=== PATIENT | female | born 1945 | race African-American/Black ===

== ENCOUNTER 2020-01-13 14:05 | Emergency (ER) | payer MEDICARE ==
[~2020-01-13] VITALS: Ht 162.6 cm; Wt 54.4 kg
[~2020-01-13 14:05] MED LIST: ATENOLOL 50 MG50 M1 PO; BENAZEPRIL HCL40 MG PO; HYDROCHLOROTHIA25 M1 PO; NORVASC5 MG PO; NYSTATIN 1100000 U/M SW&SWALLOW; PREVACID30 M1 PO
[2020-01-13 14:13] VITALS: BP 144/87
[2020-01-13] MEDS ORDERED: TRIAMCINOLONE A80 G2 TOP (14:37)
[2020-01-13] MEDS ORDERED: KEFLEX500 M1 PO (14:37)
== END 2020-01-13 14:52 | disposition home or self-care (01) ==
LOC: ER 14:05
DX: S90.522A Blister (nonthermal), left ankle, initial encounter (principal); I10 Essential (primary) hypertension; F17.210 Nicotine dependence, cigarettes, uncomplicated; Z79.899 Other long term (current) drug therapy; X58.XXXA Exposure to other specified factors, initial encounter; Y93.89 Activity, other specified; Y92.89 Other specified places as the place of occurrence of the external cause; Y99.8 Other external cause status

== ENCOUNTER 2020-01-16 20:57 | Emergency (ER) | payer MEDICARE ==
[~2020-01-16] VITALS: Ht 162.6 cm; Wt 56.7 kg
[~2020-01-16 20:57] MED LIST changes: +KEFLEX500 M1 PO; +TRIAMCINOLONE A80 G2 TOP
[2020-01-16 22:24] VITALS: BP 151/57
== END 2020-01-16 22:24 | disposition home or self-care (01) ==
LOC: ER 20:57
DX: S90.522A Blister (nonthermal), left ankle, initial encounter (principal); I10 Essential (primary) hypertension; F17.210 Nicotine dependence, cigarettes, uncomplicated; Z79.2 Long term (current) use of antibiotics; Z79.899 Other long term (current) drug therapy; X58.XXXA Exposure to other specified factors, initial encounter; Y93.89 Activity, other specified; Y92.89 Other specified places as the place of occurrence of the external cause; Y99.8 Other external cause status

== ENCOUNTER 2020-09-30 18:39 | Inpatient (IN) | payer MEDICARE ==
[~2020-09-30] VITALS: Ht 162.6 cm; Wt 58.0 kg
[2020-09-30 18:48] VITALS: BP 127/62
[2020-09-30 22:37] LABS: ABSOLUTE NEUTROPHILS 6.5 thou/uL (1.4-8.2); BASOPHILS 0.9 % (0.0-2.0); EOSINOPHILS 0.2 % (0.0-3.0); HEMATOCRIT 35.3 % (37.0-47.0); HEMOGLOBIN 12.3 gm/dL (12.0-15.0); LYMPHOCYTES 28.7 % (24.0-44.0); MCH 34.3 pg (26.0-34.0); MCHC 34.9 g/dL (28.0-37.0); MCV 98.2 fL (80.0-100.0); MONOCYTES 8.9 % (1.0-8.0); PLATELET COUNT 234 thou/uL (150-400); POLYS 61.3 % (36.0-66.0); RBC 3.59 mil/uL (4.20-5.00); RDW 12.4 % (10.5-14.5); WBC 10.6 thou/uL (4.0-11.0)
[2020-09-30 22:41] LABS: CALCIUM 9.5 mg/dL (8.5-10.1); CREATININE 0.8 mg/dL (0.6-1.0); POTASSIUM 3.6 mmol/L (3.5-5.1)
[2020-09-30 23:12] VITALS: BP 134/67
[2020-09-30 23:54] VITALS: BP 137/76
--- NOTE | 2020-09-30 23:56 | NUR ---
ADMITTED TO THE UNIT AT APPROXIMATELY 2345. PT IS A/O X4 AND IS UP WITH ASSISTANCE. APPEARS SAD AND IRRITABLE ABOUT BEING HERE IN THE HOSPITAL. IS ON ROOM AIR. ADMISSION IS COMPLETED, CALL LIGHT IS WITHIN REACH. RIGHT ANKLE IS IN SOFT CAST AND ELEVATED ON A PILLOW. FALL PRECAUTIONS IN PLACE, CALL LIGHT IS WITHIN REACH. WILL CONTINUE TO MONITOR.
--- NOTE | 2020-09-30 23:56 | NUR ---
DECLINED TO TRANSFER TO FLOOR WHEN BED WAS ASSIGNED, WANTED TO FINISH MEAL FIRST
[2020-10-01 00:30] VITALS: BP 145/78
[2020-10-01 05:45] VITALS: BP 127/61
[2020-10-01 07:53] VITALS: BP 143/51
--- NOTE | 2020-10-01 14:26 | NUR ---
ASSESSMENT: CM REVIEWED CHART AND SPOKE WITH PATIENT AND HER DAUGHTER MAYRA WHO WAS AT THE BEDSIDE. PT IS ALERT AND ORIENTED X4. PT WAS ADMITTED S/P FALL AND HAS RIGHT ANKLE FX. PT IS TO HAVE ORIF TODAY. PT REPORTS LIVING IN A RANCH STYLE HOME WITH HER DAUGHTER ROSANNE. PT REPORTS ABOUT 2 STEPS WITH NO HANRAIL TO ENTER. SHE REPORTS ALL HER NEEDS ARE ON THE MAIN LEVEL EXCEPT LAUNDRY IS IN THE BASEMENT BUT DAUGHTER CAN DO IT. PTS DAUGHTER ROSANNE IS HOME WITH HER USUALLY AT ALL TIMES SHE NOW WORKS FROM HOME. PT REPORTS SHE NORMALLY WAS INDEPENDENT WITH ADLS AND AMBULATION PRIOR TO THIS EVENT. PT DENIES HAVING ANY DME AT HOME OTHER THEN A GRAB BAR IN THE SHOWER. PT DENIES HAVING HH IN THE PAST OR BEING TO A SNF. CM DISCUSSED ROLE AND LIKLEY NEED OF NWB POST SURGERY AND MAY REQUIRE HH VS POST ACUTE CARE. PT STATES SHE IS NOT AND WILL NOT INTERESTED IN A POST ACUTE CARE STAY AND DAUGHTER AND PT REPORT THEY WANT HER TO GO HOME WITH HH IF ABLE AND ASSSISTANCE FROM FAMILY THAT CAN ALL TAKE TURNS. THEY ARE OPEN TO LOOKING AT A SNF LIST ALTHOUGH THEY STATE THEY DO NOT WANT THIS PLAN. CM PROVIDED WITH SNF LIST IN NETWORK WITH HER INSURANCE WELL HH COMPAINES. PT DOES NOT HAVE A DPOA AND CM ALSO PROVIDED PATIENT WITH DPOA PAPERWORK IF SHE IS INTERESTED IN COMPLETING. CM WILL CONTINUE TO FOLLOW TO ASSIST NEEDED.
--- NOTE | 2020-10-01 18:32 | NUR ---
Patient back from surgery around 6pm, a new ice bag was put by the leg, patient complains of radha snow given.
--- NOTE | 2020-10-01 18:34 | NUR ---
right toes feel warm, patient voiced that she could feel the touch of the staff.
[2020-10-01 23:43] VITALS: BP 139/75
[2020-10-02 06:02] LABS: BASOPHILS 0.3 % (0.0-2.0); HEMATOCRIT 35.9 % (37.0-47.0); HEMOGLOBIN 11.9 gm/dL (12.0-15.0); LYMPHOCYTES 16.1 % (24.0-44.0); MCH 33.6 pg (26.0-34.0); MCHC 33.3 g/dL (28.0-37.0); MCV 100.8 fL (80.0-100.0); MONOCYTES 5.1 % (1.0-8.0); PLATELET COUNT 222 thou/uL (150-400); POLYS 78.5 % (36.0-66.0); RBC 3.56 mil/uL (4.20-5.00); RDW 12.6 % (10.5-14.5); WBC 8.9 thou/uL (4.0-11.0)
[2020-10-02 06:22] LABS: CALCIUM 9.1 mg/dL (8.5-10.1); CREATININE 0.8 mg/dL (0.6-1.0); MAGNESIUM 1.8 mg/dL (1.8-2.4); POTASSIUM 3.9 mmol/L (3.5-5.1)
[2020-10-02 07:50] VITALS: BP 135/69
--- NOTE | 2020-10-02 08:10 | NUR ---
PT AOX4 WITH INTERMITTENT FORGETFULNESS. PT REPORTS 7/10 PAIN IN LEFT ANKLE. PT RECEIVING PRN PO NORCO Q6HR WITH PRN IV DILAUDID Q2HR AVAILABLE. PT DENIES SOB WHILE ON ROOM AIR. PT TOLERATING PO INTAKE OF FLUIDS AND REGULAR DIET WITHOUT ISSUE. PT WITHOUT NAUSEA OR EMESIS. PT AMBULATING WITH X1 ASSIST AND WALKER TO BEDSIDE COMMODE, MAINTAINS NWB STATUS TO LLE. SENSATION INTACT, CAPILLARY REFILL LESS THAN 3SEC, PERIPHERAL PULSES PALPABLE IN ALL EXTREMITIES. PT WITH TREMORS TO BUE. PT ABLE TO SHIFT INDEPENDENTLY WHILE IN BED. PT MAINTAINS CAST TO LLE, CLEAN, DRY AND INTACT UPON SHIFT ASSESSMENT AND SHIFT ROUNDING. UPON MORNING ROUNDS, PT NOTED TO HAVE BRIGHT BLOODY DRAINAGE TO HEEL OF CAST AND PILLOW. ONCALL PROVIDER NOTIFIED, ADVISED TO REINFORCE CAST AND PROVIDER WILL SEE PT TODAY. PT ENCOUARGED TO NOTIFY STAFF FOR ALL NEEDS, CALL LIGHT WITHIN REACH, BED ALARM ON, BED LOCKED IN LOWEST POSITION, FREQUENT MONITORING WILL CONTINUE.
[2020-10-02 13:21] VITALS: BP 135/69
--- NOTE | 2020-10-02 13:22 | NUR ---
ON-GOING ASSESSMENT: CM REVIEWED CHART AND MET WITH PATIENT AND HER DAUGHTER AT THE BEDSIDE. PHYSICAL THERAPY ALSO IN THE ROOM AND PATIENT DID VERY WELL WITH THERAPY TODAY AND RECOMMENDATION FOR HOME WITH HOME HEALTH PATIENT PREFERS. CM DISCUSSED AGAIN [facility] LIST AND PT PREFERS A REFERRAL BE SENT TO [facility]. CM SENT REFERRAL AND NOTIFIED JERICA PENA FROM [facility] WHO REPORTS THEY WILL BE ABLE TO ACCEPT HER. PT IS ALSO NEEDING A WALKER FOR DISCHARGE AND HAS NO PREFERENCE OF COMPANY. CM NOTIFIED RAJI PENA AT [facility] WHO REPORTS SHE WILL DELIVER TO PATIENTS ROOM TODAY. PT IS WORKING ON STEPS WITH THERAPY THIS AFTERNOON. PLANS FOR POSSIBLE DISCHARGE HOME WITH [facility] SOON. ONCE DISCHARGE ORDERS ARE IN FAX TO [facility] FAX:[phone]. [facility] THEM AT [phone] TO NOTIFY THEM OF DISCHARGE. FAMILY WILL BE ABLE TO TRANSPORT PATIENT.
--- NOTE | 2020-10-02 13:53 | NUR ---
ASSUMED CARE AT 0700 THIS MORNING. PT WAS ADMITTED FOR FX RIGHT ANKLE. PT HAD SURGERY YESTERDAY TO REPAIR THE ANKLE. RIGHT FOOT AND LOWER LEG ARE CASTED WITH FIBERGLASS MATERIAL. INCISION DRAINAGE NOTED ON LOWER BACK SIDE OF CAST COVERED WITH ABD PAD AND KERLEX. DRESSING IS C/D/I. PT IS A/OX4, EYES PERRLA, LUNGS ARE CLEAR ALL POWER, CONTINUED ASSESSMENTS WHICH ARE OTHERWISE UNREMARKABLE. MEDS AND TX GIVEN PRESCRIBED AND SCHEDULED. IV IN RIGHT FA WITH SL. CALL LIGHT AND OTHER NEEDS WITHIN REACH.
[2020-10-02 16:15] VITALS: BP 129/65
--- NOTE | 2020-10-02 18:26 | O ---
[facility] [place] [address] OPERATIVE REPORT Name: ARACELI JUAREZ Room #: 444-P ADM IN M.R.#: [id number] Admission: 09/30/20 Attend Phys: Andrea Patton MD Discharge: Date of : 47 Report #: [id number] THIS REPORT FOR: cc: Maki Paz MD, Karla L. MD Kneidel,Brendan Ayers MD ~ DOC #: [id number] Brendan Harrison MD DATE OF SERVICE: 10/01/2020 PREOPERATIVE DIAGNOSIS: Right ankle bimalleolar fracture. POSTOPERATIVE DIAGNOSIS: Right ankle bimalleolar fracture. PROCEDURE: Right ankle open reduction internal fixation bimalleolar fracture. SURGEON: Brendan Harrison MD CENTER HUMAN RESOURCES MANAGER: None. ANESTHESIA: General. ESTIMATED BLOOD LOSS: Minimal. DRAINS: No drains. TOURNIQUET TIME: 30 minutes. DESCRIPTION OF PROCEDURE: The patient was brought to the operating room, where she was placed under general anesthesia. Once under adequate general anesthesia, her right lower extremity was elevated and tourniquet placed to 300 mmHg. A lateral incision 6 cm in length over the distal fibula was then made. This was dissected down through the soft tissue to the fracture site and the hematoma about the fracture site was evacuated. A reduction maneuver was performed and achieved with a bone reduction tenaculum. Once in place, a 7-hole plate from the [employer] small fragment set was placed. Two screws distal and 4 screws proximal to the fracture site. Excellent fixation and alignment was achieved as verified under fluoroscopy . Two 4.0 cannulated screws were placed from the medial malleolus utilizing the guidewires placed percutaneously open incision 1 cm in length was made and the two guidewires were then placed across the medial malleolar fracture utilizing fluoroscopy for guidance. Two 40 mm long threaded cannulated screws were then placed across the fracture site. Excellent fixation and alignment was achieved as verified under fluoroscopy. The wounds were then irrigated copiously and closed with 2-0 Vicryl in the subcutaneous tissues and ryan for the skin. The wounds were dressed with Xeroform, 4 x 4's, and sterile soft compressive dressing with a [facility] [address] [place] [address] OPERATIVE REPORT Name: ARACELI JUAREZVONNE Room #: 444-P [facility] IN ..#: [id number] Admission: 09/30/20 Attend Phys: Andrea Patton MD Discharge: Date of : 47 Report #: [id number] short leg cast was placed. Tourniquet was let down at approximately 30 minutes. Toes were pink and warm. Good capillary refill. There were no complications from the procedure. The patient tolerated the procedure well and was to the recovery room without incident. MD GISEL García/LARISA/MAGDIEL <ELECTRONICALLY SIGNED> By: Brendan Harrison MD 10/02/20 1826 [id number] Brendan Harrison MD /nt
[2020-10-02 19:14] VITALS: BP 128/69
--- NOTE | 2020-10-02 19:28 | NUR ---
I agree with assessment and note of MARLYS Vuong.
[2020-10-03 04:12] VITALS: BP 131/68
[2020-10-03 07:50] VITALS: BP 133/53
--- NOTE | 2020-10-03 08:07 | NUR ---
RECEIVED CARE OF THIS PATIENT AT 1900. PATIENT ALERT AND ORIENTED X4. UP TO BSC WITH ASSIST AND WALKER. HAS CAST ON R LOWER EXT. CAST HAS SMALL AMOUNT OF BLEEDING FROM TOP OF IT. PATIENT WORRIED THAT SHE WAS GOTTEN UP TO SOON AND THAT A DRESSING THAT COULD BE TAKEN OFF EASILY SHOULD HAVE BEEN PUT ON. SHE IS ALSO WORRIED THAT THE DOCTORS MAY HAVE TO GO IN AND REDO SOMETHING. SLEPT VERY LITTLE TO NIGHT.
[2020-10-03 09:52] VITALS: BP 133/53
[2020-10-03] MEDS ORDERED: PERCOCET PO (11:55)
--- NOTE | 2020-10-03 12:22 | NUR ---
ASSUMED CARE OF PT AT 0700 THIS MORNING. CONTINUED CARE FROM YESTERDAY WITH ASSESSMENTS UNREMARKABLE. PT HAS BEEN RESTING COMFORTABLY AND DID STATE THAT THERE WAS SOME LEAKAGE FROM THE INCISION SITE EXITING THE CAST. DR. BURK STATED IT WILL BE NORMAL FOR ABOUT A WEEK. WM COMPLETED DISCHARGE PAPERWORK AND PT HAS SIGNED THE ORDERS AND WAS GIVEN TO PT WITH EDUCATION MATERIAL. PT WAS XFERRED TO VEHICLE BY [facility].
== END 2020-10-03 13:02 | disposition home health service (06) | DRG 494 ==
LOC: ER 18:39 → EROBS 21:31 → 4S 21:31
PROVIDERS: Emergency Medicine; Orthopaedic Surgery Foot and Ankle Surgery; ADMIT Surgery; ATTEND Surgery
PROC: 0QSG04Z Reposition Right Tibia with Internal Fixation Device, Open Approach (ICD-10-PCS; principal; 2020-10-01)
PROC: 0QSJ04Z Reposition Right Fibula with Internal Fixation Device, Open Approach (ICD-10-PCS; principal; 2020-10-01)
DX: S82.844A Nondisplaced bimalleolar fracture of right lower leg, initial encounter for closed fracture (principal); I10 Essential (primary) hypertension; F17.210 Nicotine dependence, cigarettes, uncomplicated; Z20.822 Contact with and (suspected) exposure to COVID-19; W10.8XXA Fall (on) (from) other stairs and steps, initial encounter; Y93.89 Activity, other specified; Y92.89 Other specified places as the place of occurrence of the external cause; Y99.8 Other external cause status
CPT/HCPCS: 10195; 50010; 50101; 50343; 50386; 51122; 51131; 51412; 52120; 56524; 56667; 57091; 62110; 62900; 70005